=== PATIENT | female | born 1980 | race Caucasian/White ===

== ENCOUNTER 2017-07-22 15:35 | Inpatient (IN) | payer OTHER ==
[~2017-07-22] VITALS: Ht 172.7 cm; Wt 104.3 kg
[2017-07-22 17:49] LABS: ABSOLUTE BASOPHIL COUNT 0.1 /CUMM (0.0-0.2); ABSOLUTE EOSINOPHIL COUNT 0 /CUMM (0.0-0.7); ABSOLUTE GRANULOCYTE CT 9.8 /CUMM (1.4-6.5); ABSOLUTE LYMPH COUNT 1.7 /CUMM (1.2-3.4); ABSOLUTE MONOCYTE COUNT 0.4 /CUMM (0.10-0.60); BASOPHIL % 0.5 % (0.0-2.0); EOSINOPHIL % 0.1 % (0-5); GRANULOCYTE % 81.9 % (42.2-75.2); HEMATOCRIT 35.6 % (37-47); MEAN CORPUSCULAR HGB 31.7 PG (27.0-31.0); MEAN CORPUSCULAR HGB CONC 33.7 G/DL (33.0-37.0); MEAN CORPUSCULAR VOLUME 94.1 FL (81.0-99.0); MEAN PLATELET VOLUME 9.4 FL (7.4-10.4); PLATELET COUNT 243 /CUMM (130-400); RBC DISTRIBUTION WIDTH 13.8 % (11.5-14.5); RED BLOOD CELL CT 3.78 /CUMM (4.20-5.40)
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
--- NOTE | 2017-07-22 18:48 | CT SCAN REPORT ---
EXAMINATION: CTA OF THE HEAD AND NECK CLINICAL INFORMATION: Left-sided visual defect. Stroke. COMPARISON: Head CT from earlier in the evening on 07/22/2017. TECHNIQUE: Test bolus sequences followed by intravenous administration 95 mL of Optiray 350. Helical imaging was performed in the axial plane from the mediastinum to the skull vertex. Delayed postcontrast imaging of the head was also performed. The data was processed at the technologist development's workstation for generation of MIP sequences. Three-dimensional volume rendered reformatted images were also generated at an offline 3-D workstation. DLP: 1112.95 mGy-cm. FINDINGS: CT head: There is focal loss of olea-white matter attenuation in the anteroinferior portion of the right occipital lobe. There is no evidence of acute intracranial hemorrhage. No abnormal mass effect or midline shift is seen. No extra-axial fluid collections are identified. There is no abnormal enhancement. The ventricles are normal in size. Small peripheral areas of low-density change in the cerebellar hemispheres may reflect age-indeterminate infarcts. The osseous structures and soft tissues are normal. The mastoid air cells and visualized portions of the paranasal sinuses are well aerated. CTA neck: The imaged aortic arch and origins of the great vessels are normal. The common carotid arteries are widely patent. The carotid bifurcations are normal. The cervical internal carotid arteries are normal. The vertebral arteries opacify normally and are of normal caliber. The left vertebral artery is developmentally nondominant and hypoplastic. The soft tissues of the neck are unremarkable. Mild lower cervical spondylosis noted with endplate spurring. The imaged portions of the lungs are clear. CTA head: The intradural vertebral arteries and basilar artery are normal. There is occlusion of the right posterior cerebral artery at the distal P3 segment. The left LONGWALL SHEARER OPERATOR is patent. The internal carotid arteries are of normal caliber. The ULISES and MCA vascular complexes bilaterally are normal. The venous sinuses opacify normally. IMPRESSION: Focal right occipital lobe infarct without hemorrhagic conversion or mass effect. Occlusion of the right LONGWALL SHEARER OPERATOR at the distal P3 segment. Small peripheral areas of low-density change in the cerebellar hemispheres are nonspecific and may reflect age indeterminate infarcts. This critical result was discussed with Dr. Baig at 6:40 PM on 07/22/2017 and it was ascertained that the content and urgency of the report was understood at the time of direct communication.
[2017-07-22] MEDS ORDERED: ORTHO TRI-CYCL1 EAC1 PO (19:32)
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
--- NOTE | 2017-07-22 22:33 | Admission Certification ---
Admission Certification Certification Statement - As attending physician, I certify that at the time of - admission, based on clinical presentation, severity of - symptoms, need for further diagnostic testing and - therapeutic interventions, and risk of adverse outcomes - without in-hospital treatment, in my clinical assessment, - this patient requires an acute hospital stay for a minimum - of two nights or longer. I have also considered psychsocial - factors such as support system, advanced age, financial - issues, cognitive issues, and failed out-patient treatments, - past re-admission history, safety of patient, and lack of - compliance as applicable. 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
[2017-07-22 23:06] VITALS: BP 138/100
[2017-07-23 06:30] VITALS: BP 132/100
--- NOTE | 2017-07-23 07:14 | PN- Housestaff ---
Subjective Follow-up For: Stroke Tele-Events Since Last Visit: Sinus tachycardia with couplets Heart rate 11-127 3 beat run of V. tach Subjective: Patient continues to have bitemporal visual field deficit, denies any weakness or numbness in any part of the body, confusion/altered mental status, visual loss, slurring of speech or any facial droop. Also reports mild headache when she woke up this morning which has resolved now. Review of Systems Constitutional: Reports: no symptoms. EENTM: Reports: visual changes. Cardiovascular: Reports: no symptoms. Respiratory: Reports: no symptoms. Gastrointestinal: Reports: no symptoms. Genitourinary: Reports: no symptoms. Musculoskeletal: Reports: no symptoms. Skin: Reports: no symptoms. Neurological/Psychological: Reports: no symptoms. Hematologic/Endocrine: Reports: no symptoms. Immunologic/Allergic: Reports: no symptoms. Objective Last 24 Hrs of Vital Signs/I&O Vital Signs Date Time Temp Pulse Resp B/P B/P Pulse O2 O2 Flow FiO2 Mean Ox Delivery Rate 07/23 0630 98.1 105 18 132/100 98 07/22 2306 98.0 119 16 138/100 100 Room Air 07/22 2233 99.2 113 16 143/97 100 Room Air 07/22 1916 99.1 114 22 148/86 98 Room Air 07/22 1606 97.7 117 15 136/93 96 Room Air Room Air Intake & Output 07/23 1600 07/23 0800 07/23 0000 Intake Total 400 260 240 Output Total 750 Balance -350 260 240 Intake, IV 10 Intake, Oral 400 250 240 Output, Urine 750 Patient 230 lb Weight Weight Reported by Patient Measurement Method Physical Exam General Appearance: Alert, Oriented X3, Cooperative, No Acute Distress Skin: No Rashes, No Breakdown HEENT: Atraumatic, PERRLA, EOMI, Mucous Membr. moist/pink, dilated pupils Cardiovascular: Regular Rate, Normal S1, Normal S2 Lungs: Clear to Auscultation, Normal Air Movement Abdomen: Normal Bowel Sounds, Soft, No Tenderness Extremities: No Clubbing, No Cyanosis, No Edema, Normal Pulses Current Medications: Current Medications Sig/Manoj Start time Last Medication Dose Route Stop Time Status Admin Aspirin 81 MG DAILY 07/23 1000 AC 07/23 PO 0810 Aspirin 0 .STK-MED ONE 07/22 1952 DC PO Aspirin 325 MG ONCE ONE 07/22 1929 DC 07/22 PO 07/22 193 1950 Atorvastatin Calcium 40 MG 1700 07/23 1700 DC PO Atorvastatin Calcium 80 MG 1700 07/23 1700 AC PO Atorvastatin Calcium 80 MG ONCE ONE 07/22 1930 DC 07/22 PO 07/22 193 1950 Heparin Sodium 5,000 UNIT Q8 07/23 0600 AC 07/23 (Porcine) SC 1317 Influenza Virus 0.5 ML ONCE ONE 07/22 2330 DC 07/22 Vaccine IM 07/22 2330 2328 Melatonin 5 MG AT BEDTIME 07/23 2200 DC PO Melatonin 5 MG AT BEDTIME 07/22 2345 AC 07/22 PO 2350 Ondansetron HCl 4 MG Q6P PRN 07/22 2145 IV Patient Medication 1 ED ONE ONE 07/23 1430 [place] Teaching [facility] 07/23 1431 Last 24 Hrs of Lab/Avn Results Last 24 Hrs of Labs/Mics: Laboratory Tests 07/23/17 0636: Homocysteine Pending 07/23/17 0636: Anion Gap 9, Estimated GFR > 60, BUN/Creatinine Ratio 14.4, Triglycerides 109, Cholesterol 95, LDL Cholesterol, Calc 43 L, HDL Cholesterol 31 L, Cholesterol/ HDL Ratio 3, CBC w Diff NO MAN DIFF REQ, RBC 3.59 L, MCV 93.6, MCH 31.4 H, MCHC 33.6, RDW 14.0, MPV 9.5, Gran % 62.0, Lymphocytes % 30.3, Monocytes % 5.5, Eosinophils % 1.6, Basophils % 0.6, Absolute Granulocytes 5.6, Absolute Lymphocytes 2.7, Absolute Monocytes 0.5, Absolute Eosinophils 0.1, Absolute Basophils 0.1, Anti-Cardiolipin IgG Ab Pending, Anti-Cardiolipin IgA Ab Pending, Anti-Cardiolipin IgM Ab Pending, Cardiolipin Ab Comment Pending 07/22/17 1738: Anion Gap 11, Estimated GFR > 60, BUN/Creatinine Ratio 14.4, Phosphorus 3.6, Magnesium 1.6, Triglycerides 102, Cholesterol 117, LDL Cholesterol, Calc 56 L, HDL Cholesterol 41, Cholesterol/HDL Ratio 3, Total Beta HCG NEGATIVE, CBC w Diff NO MAN DIFF REQ, RBC 3.78 L, MCV 94.1, MCH 31.7 H, MCHC 33.7, RDW 13.8, MPV 9.4, Gran % 81.9 H, Lymphocytes % 14.1 L, Monocytes % 3.4, Eosinophils % 0.1, Basophils % 0.5, Absolute Granulocytes 9.8 H, Absolute Lymphocytes 1.7, Absolute Monocytes 0.4, Absolute Eosinophils 0, Absolute Basophils 0.1 Assessment/Plan Assessment: 37-year-old female with no past medical history on OCP presented to the ER with c/o left sided visual deficit and paresthesia in left side of her body. A/P; 1. Stroke; Right occipital lobe infarct on CTA. Patient continues to have bitemporal visual field deficits. - Continue aspirin and statin - Echocardiogram pending. Patient will need a DMITRY to rule out any cardio embolic source. - MRI was canceled as the lesion is already seen on the CAT scan and getting an MRI which shows the management. - Neurology consult; awaiting recommendations - Antiphospholipid antibody and homocystine level pending. - Oral contraceptive pill discontinued. Discussed with the patient, she can no longer take contraceptive pills, will need an alternate method of contraception. - Patient remains tachycardic and had a blood pressure of 130/100 this morning. No previous history of hypertension or tachycardia/arrhythmias. Could be anxiety or white coat hypertension. We'll continue to monitor. DVT prophylaxis; subcutaneous Lovenox Patient is full code Problem List: 1. Stroke Pain Ratin Pain Location: None Pain Goal: Remain pain free Pain Plan: Pain pathway Tomorrow's Labs & Rationales: None
--- NOTE | 2017-07-23 07:30 | ULTRASOUND REPORT ---
EXAMINATION: DUPLEX BILATERAL CAROTID ULTRASOUND CLINICAL INFORMATION: Woke with left upper extremity pain, paresthesias. Some loss of vision within the left eye. COMPARISON: None. TECHNIQUE: Duplex bilateral carotid US was performed using real-time ultrasound and Doppler techniques (integrating B-mode 2D vascular images, Doppler spectral analysis and color flow Doppler imaging). These techniques were utilized to interrogate the extracranial carotid and vertebral arteries bilaterally. The degree of stenosis is based off criteria similar to NASCET. FINDINGS: No plaque is seen at the carotid bifurcations or within the internal carotid arteries. All velocities are within normal limits. ADDITIONAL FINDINGS: The vertebral arteries show antegrade flow. The external carotid arteries appear normal. IMPRESSION: No evidence of a hemodynamically significant stenosis involving the internal carotid arteries.
[2017-07-23 08:21] LABS: ABSOLUTE BASOPHIL COUNT 0.1 /CUMM (0.0-0.2); ABSOLUTE EOSINOPHIL COUNT 0.1 /CUMM (0.0-0.7); ABSOLUTE GRANULOCYTE CT 5.6 /CUMM (1.4-6.5); ABSOLUTE LYMPH COUNT 2.7 /CUMM (1.2-3.4); ABSOLUTE MONOCYTE COUNT 0.5 /CUMM (0.10-0.60); BASOPHIL % 0.6 % (0.0-2.0); EOSINOPHIL % 1.6 % (0-5); HEMATOCRIT 33.5 % (37-47); MEAN CORPUSCULAR HGB 31.4 PG (27.0-31.0); MEAN CORPUSCULAR HGB CONC 33.6 G/DL (33.0-37.0); MEAN CORPUSCULAR VOLUME 93.6 FL (81.0-99.0); MEAN PLATELET VOLUME 9.5 FL (7.4-10.4); PLATELET COUNT 195 /CUMM (130-400); RED BLOOD CELL CT 3.59 /CUMM (4.20-5.40); WHITE BLOOD CELL COUNT 9.1 /CUMM (4.8-10.8)
--- NOTE | 2017-07-23 08:43 | CT SCAN REPORT ---
EXAMINATION: CT HEAD WITHOUT CONTRAST CLINICAL INFORMATION: Loss of peripheral vision on left side. COMPARISON: None TECHNIQUE: Contiguous axial imaging was performed from the skull base to vertex without intravenous administration of contrast. The study is somewhat limited due to patient motion. DLP: 620 mGy-cm FINDINGS: There is no evidence of acute intracranial hemorrhage or territorial infarction. No abnormal mass effect or midline shift is seen. Aquino to white matter differentiation is well preserved. No extra-axial fluid collections are identified. The ventricles are normal in size. There are some peripheral posterior areas of low-density change and cerebellum which may be due to small infarcts or cerebellar fissures en face. The osseous structures and soft tissues are normal. The mastoid air cells and visualized portions of the paranasal sinuses are well aerated. IMPRESSION: No acute intracranial hemorrhage or territorial infarction. Somewhat limited study with motion artifacts. Questionable patchy areas of low density in the cerebellum which may be due to small infarcts or may be artifactually due to cerebellar fissures. If indicated, suggest further evaluation with MRI.
--- NOTE | 2017-07-23 11:34 | PN- Att Addend ---
Attending Addendum Attending Brief Note Patient seen and examined. Plan of care discussed with the medical team and the patient. Available lab work and radiology test reports were reviewed. Patient reports a slight occipital headache and the peripheral vision deficits. Exam: General: Patient awake alert oriented without any distress CVS: S1 plus S2 without any murmur or gallops Chest: Few scattered crepitation without any wheeze. There is no respiratory distress. 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: Awake alert oriented without any focal neuro deficit and follows commands appropriately; she subjectively reports a peripheral vision deficit bilaterally; Extremities: No edema; no clubbing or cyanosis noted Assessment plan Occipital stroke with the posterior cerebral artery thrombosis versus embolic phenomena - Obtain echocardiogram with possible closure plan for DMITRY to rule out cardiac embolic disease - Neurology consult - Patient was informed that she can no longer continues hormonal contraceptives - Continue DVT prophylaxis Continue aspirin and statin Out of bed and ambulate with assist No need for MRI since it would not change over and diagnosis has been confirmed with the CT scan - Follow-up for antiphospholipid antibodies and homocysteine level Laboratory Tests 07/23/17 0636: Homocysteine Pending 07/23/17 0636: Anion Gap 9, Estimated GFR > 60, BUN/Creatinine Ratio 14.4, Triglycerides 109, Cholesterol 95, LDL Cholesterol, Calc 43 L, HDL Cholesterol 31 L, Cholesterol/ HDL Ratio 3, CBC w Diff NO MAN DIFF REQ, RBC 3.59 L, MCV 93.6, MCH 31.4 H, MCHC 33.6, RDW 14.0, MPV 9.5, Gran % 62.0, Lymphocytes % 30.3, Monocytes % 5.5, Eosinophils % 1.6, Basophils % 0.6, Absolute Granulocytes 5.6, Absolute Lymphocytes 2.7, Absolute Monocytes 0.5, Absolute Eosinophils 0.1, Absolute Basophils 0.1, Anti-Cardiolipin IgG Ab Pending, Anti-Cardiolipin IgA Ab Pending, Anti-Cardiolipin IgM Ab Pending, Cardiolipin Ab Comment Pending 07/22/17 6978: Anion Gap 11, Estimated GFR > 60, BUN/Creatinine Ratio 14.4, Phosphorus 3.6, Magnesium 1.6, Triglycerides 102, Cholesterol 117, LDL Cholesterol, Calc 56 L, HDL Cholesterol 41, Cholesterol/HDL Ratio 3, Total Beta HCG NEGATIVE, CBC w Diff NO MAN DIFF REQ, RBC 3.78 L, MCV 94.1, MCH 31.7 H, MCHC 33.7, RDW 13.8, MPV 9.4, Gran % 81.9 H, Lymphocytes % 14.1 L, Monocytes % 3.4, Eosinophils % 0.1, Basophils % 0.5, Absolute Granulocytes 9.8 H, Absolute Lymphocytes 1.7, Absolute Monocytes 0.4, Absolute Eosinophils 0, Absolute Basophils 0.1 Vital Signs Date Time Temp Pulse Resp B/P B/P Pulse O2 O2 Flow FiO2 Mean Ox Delivery Rate 07/23 0630 98.1 105 18 132/100 98 07/22 2306 98.0 119 16 138/100 100 Room Air 07/22 2233 99.2 113 16 143/97 100 Room Air 07/22 1916 99.1 114 22 148/86 98 Room Air 07/22 1606 97.7 117 15 136/93 96 Room Air Room Air Intake & Output 07/23 1600 07/23 0800 07/23 0000 Intake Total 260 240 Output Total Balance 260 240 Intake, IV 10 Intake, Oral 250 240 Patient 230 lb Weight Weight Reported by Patient Measurement Method
--- NOTE | 2017-07-23 14:49 | Cons- Neurology ---
General Information and HPI Consulting Request Date of Consult: 07/23/17 Requested By: Iain LOCKETT,Lizeth Source of Information: patient Exam Limitations: no limitations History of Present Illness: 37-year-old female presented yesterday to Hospital emergency room. She recalls that earlier that in the assembly member she developed abdominal pain and had a number of episodes of vomiting There was no fever Her drove by car to her physician's office later that morning In route she noted a sense of tingling which began in the face and then migrated to the arm and leg Shortly afterward she noted that her vision was affected and she was unable to see in the left visual field There was no headache and no focal weakness Was no history of imbalance or gait difficulty After about 20 minutes the paresthesia in the left upper and lower extremity resolved The visual difficulty has remained unchanged She does not note any difficulty with reading There has been no diplopia She has never had any similar symptoms previously Allergies/Medications Allergies: Coded Allergies: No Known Allergies (07/22/17) Home Med List: Norgestimate-Ethinyl Estradiol (Ortho Tri-Cyclen Lo Tablet) [id number] LO TABLET 1 TAB PO DAILY CONTROL (Reported) Current Medications: Current Medications Sig/Manoj Start time Last Medication Dose Route Stop Time Status Admin Aspirin 81 MG DAILY 07/23 1000 AC 07/23 PO 0810 Aspirin 0 .STK-MED ONE 07/22 1952 DC PO Aspirin 325 MG ONCE ONE 07/22 1930 DC 07/22 PO 07/22 1930 1950 Atorvastatin Calcium 40 MG 1700 07/23 1700 DC PO Atorvastatin Calcium 80 MG 1700 07/23 1700 AC PO Atorvastatin Calcium 80 MG ONCE ONE 07/22 1930 DC 07/22 PO 07/22 193 1950 Heparin Sodium 5,000 UNIT Q8 07/23 0600 AC 07/23 (Porcine) SC 1317 Influenza Virus 0.5 ML ONCE ONE 07/220 DC 07/22 Vaccine IM 07/22 2330 2328 Melatonin 5 MG AT BEDTIME 07/23 2200 DC PO Melatonin 5 MG AT BEDTIME 07/22 2345 AC 07/22 PO 2350 Ondansetron HCl 4 MG Q6P PRN 07/22 2145 AC IV Patient Medication 1 ED ONE ONE 07/23 1430 DC Teaching ED 07/23 1431 Review of Systems Review of Systems: No headache, no weight change, no head trauma No difficulty speech or swallowing No chest pains or breathing difficulties or abdominal pain No falls No rashes or fevers No incontinence Past History Travel History Traveled to [place] past 21 day No Medical History Blood Transfusion Hx: No Neurological: NONE EENT: NONE Cardiovascular: NONE Respiratory: NONE Gastrointestinal: NONE Hepatic: NONE Renal: NONE Musculoskeletal: NONE Psychiatric: NONE Endocrine: NONE Blood Disorders: NONE Cancer(s): NONE STONEHAND/Reproductive: NONE Surgical History Surgical History: Family History Relations & Conditions If Any: Relation not specified for: *No pertinent family history Psychosocial History Where Do You Live? Home Who Do You Live With? spouse Services at Home: None Primary Language: Wallisian Smoking Status: Never Smoked ETOH Use: occasional use Illicit Drug Use: denies illicit drug use Functional Ability ADLs Independent: dressing, eating, toileting, bathing. Ambulation: independent IADLs Independent: shopping, housework, finances, food prep, telephone, transportation , medication admin. Exam & Diagnostic Data Vital Signs and I&O Vital Signs Date Time Temp Pulse Resp B/P B/P Pulse O2 O2 Flow FiO2 Mean Ox Delivery Rate 07/23 0630 98.1 105 18 132/100 98 07/22 2306 98.0 119 16 138/100 100 Room Air 07/22 2233 99.2 113 16 143/97 100 Room Air 07/22 1916 99.1 114 22 148/86 98 Room Air 07/22 1606 97.7 117 15 136/93 96 Room Air Room Air Intake & Output 07/23 1600 07/23 0800 07/23 0000 Intake Total 400 260 240 Output Total 750 Balance -350 260 240 Intake, IV 10 Intake, Oral 400 250 240 Output, Urine 750 Patient 230 lb Weight Weight Reported by Patient Measurement Method Physical Exam: Alert and oriented Language functions fund of knowledge attention span recall intact Heart sounds normal, no carotid bruit, distal pulses intact Extraocular movements full, pupils equal and reactive, fundi benign, left visual field loss, no facial weakness or facial sensory loss, palate tongue and shoulders intact Normal tone and strength upper and lower extremities No sensory loss to all modalities upper and lower extremities Deep tendon reflexes hypoactive throughout Plantar response flexor Coordinative functions and gait intact Last 48 Hours of Lab Results: Laboratory Tests 07/23 07/23 0636 0636 Chemistry Sodium (137 - 145 mmol/L) 138 Potassium (3.5 - 5.1 mmol/L) 4.1 Chloride (98 - 107 mmol/L) 104 Carbon Dioxide (22 - 30 mmol/L) 24 Anion Gap (5 - 16) 9 BUN (7 - 17 mg/dL) 13 Creatinine (0.5 - 1.0 mg/dL) 0.9 Estimated GFR (>60 ml/min) > 60 BUN/Creatinine Ratio (7 - 25 %) 14.4 Triglycerides (<150 mg/dL) 109 Cholesterol (<200 MG/DL) 95 LDL Cholesterol, Calc (65 - 129 mg/dL) 43 L HDL Cholesterol (40 - 60 mg/dL) 31 L Cholesterol/HDL Ratio (0.00 - 4.23 %) 3 Homocysteine Pending Hematology CBC w Diff NO MAN DIFF REQ WBC (4.8 - 10.8 /CUMM) 9.1 RBC (4.20 - 5.40 /CUMM) 3.59 L Hgb (12.0 - 16.0 G/DL) 11.3 L Hct (37 - 47 %) 33.5 L MCV (81.0 - 99.0 FL) 93.6 MCH (27.0 - 31.0 PG) 31.4 H MCHC (33.0 - 37.0 G/DL) 33.6 RDW (11.5 - 14.5 %) 14.0 Plt Count (130 - 400 /CUMM) 195 MPV (7.4 - 10.4 FL) 9.5 Gran % (42.2 - 75.2 %) 62.0 Lymphocytes % (20.5 - 51.1 %) 30.3 Monocytes % (1.7 - 9.3 %) 5.5 Eosinophils % (0 - 5 %) 1.6 Basophils % (0.0 - 2.0 %) 0.6 Absolute Granulocytes (1.4 - 6.5 /CUMM) 5.6 Absolute Lymphocytes (1.2 - 3.4 /CUMM) 2.7 Absolute Monocytes (0.10 - 0.60 /CUMM) 0.5 Absolute Eosinophils (0.0 - 0.7 /CUMM) 0.1 Absolute Basophils (0.0 - 0.2 /CUMM) 0.1 Immunology Anti-Cardiolipin IgG Ab Pending Anti-Cardiolipin IgA Ab Pending Anti-Cardiolipin IgM Ab Pending Cardiolipin Ab Comment Pending 07/22 1737 Chemistry Sodium (137 - 145 mmol/L) 138 Potassium (3.5 - 5.1 mmol/L) 5.0 Chloride (98 - 107 mmol/L) 102 Carbon Dioxide (22 - 30 mmol/L) 25 Anion Gap (5 - 16) 11 BUN (7 - 17 mg/dL) 13 Creatinine (0.5 - 1.0 mg/dL) 0.9 Estimated GFR (>60 ml/min) > 60 BUN/Creatinine Ratio (7 - 25 %) 14.4 Phosphorus (2.5 - 4.5 mg/dL) 3.6 Magnesium (1.6 - 2.3 mg/dL) 1.6 Triglycerides (<150 mg/dL) 102 Cholesterol (<200 MG/DL) 117 LDL Cholesterol, Calc (65 - 129 mg/dL) 56 L HDL Cholesterol (40 - 60 mg/dL) 41 Cholesterol/HDL Ratio (0.00 - 4.23 %) 3 Total Beta HCG (NEGATIVE) NEGATIVE Hematology CBC w Diff NO MAN DIFF REQ WBC (4.8 - 10.8 /CUMM) 12.0 H RBC (4.20 - 5.40 /CUMM) 3.78 L Hgb (12.0 - 16.0 G/DL) 12.0 Hct (37 - 47 %) 35.6 L MCV (81.0 - 99.0 FL) 94.1 MCH (27.0 - 31.0 PG) 31.7 H MCHC (33.0 - 37.0 G/DL) 33.7 RDW (11.5 - 14.5 %) 13.8 Plt Count (130 - 400 /CUMM) 243 MPV (7.4 - 10.4 FL) 9.4 Gran % (42.2 - 75.2 %) 81.9 H Lymphocytes % (20.5 - 51.1 %) 14.1 L Monocytes % (1.7 - 9.3 %) 3.4 Eosinophils % (0 - 5 %) 0.1 Basophils % (0.0 - 2.0 %) 0.5 Absolute Granulocytes (1.4 - 6.5 /CUMM) 9.8 H Absolute Lymphocytes (1.2 - 3.4 /CUMM) 1.7 Absolute Monocytes (0.10 - 0.60 /CUMM) 0.4 Absolute Eosinophils (0.0 - 0.7 /CUMM) 0 Absolute Basophils (0.0 - 0.2 /CUMM) 0.1 Imaging/Other Studies: SERVICE DATE: 07/22/17 EXAM TYPE: CAT - CT HEAD ANGIOGRAM; CT NECK ANGIOGRAM EXAMINATION: CTA OF THE HEAD AND NECK CLINICAL INFORMATION: Left-sided visual defect. Stroke. COMPARISON: Head CT from earlier in the evening on 07/22/2017. TECHNIQUE: Test bolus sequences followed by intravenous administration 95 mL of Optiray 350. Helical imaging was performed in the axial plane from the mediastinum to the skull vertex. Delayed postcontrast imaging of the head was also performed. The data was processed at the photonics engineering technologist's workstation for generation of MIP sequences. Three-dimensional volume rendered reformatted images were also generated at an offline 3-D workstation. DLP: 1112.95 mGy-cm. FINDINGS: CT head: There is focal loss of olea-white matter attenuation in the anteroinferior portion of the right occipital lobe. There is no evidence of acute intracranial hemorrhage. No abnormal mass effect or midline shift is seen. No extra-axial fluid collections are identified. There is no abnormal enhancement. The ventricles are normal in size. Small peripheral areas of low-density change in the cerebellar hemispheres may reflect age-indeterminate infarcts. The osseous structures and soft tissues are normal. The mastoid air cells and visualized portions of the paranasal sinuses are well aerated. CTA neck: The imaged aortic arch and origins of the great vessels are normal. The common carotid arteries are widely patent. The carotid bifurcations are normal. The cervical internal carotid arteries are normal. The vertebral arteries opacify normally and are of normal caliber. The left vertebral artery is developmentally nondominant and hypoplastic. The soft tissues of the neck are unremarkable. Mild lower cervical spondylosis noted with endplate spurring. The imaged portions of the lungs are clear. CTA head: The intradural vertebral arteries and basilar artery are normal. There is occlusion of the right posterior cerebral artery at the distal P3 segment. The left OTHER SPORTS COACH OR INSTRUCTOR is patent. The internal carotid arteries are of normal caliber. The ULISES and MCA vascular complexes bilaterally are normal. The venous sinuses opacify normally. IMPRESSION: Focal right occipital lobe infarct without hemorrhagic conversion or mass effect. Occlusion of the right OTHER SPORTS COACH OR INSTRUCTOR at the distal P3 segment. Small peripheral areas of low-density change in the cerebellar hemispheres are nonspecific and may reflect age indeterminate infarcts. Assessment/Plan Assessment: Cerebrovascular accident, right occipital Right occipital infarct secondary to posterior cerebral artery occlusion Etiology to be determined Patient told not to be driving for the near future until further visual tests available in the future Patient to stop use of control pills Follow up in neurology office Recommendations: Cardiac evaluation: echocardiogram and process; patient may require DMITRY and event monitor Initiated on aspirin and statin In future; systolic blood pressure to be under 130 Cardiolipin antibodies and phospholipid antibodies to be drawn Further coagulopathy profile to be done as an outpatient if no etiology found in hospital Consult Acknowledgment - Thank you for your consult request.
[2017-07-23 14:51] VITALS: BP 137/95
[2017-07-23 22:01] VITALS: BP 120/70
[2017-07-24 06:43] VITALS: BP 140/106
--- NOTE | 2017-07-24 08:05 | ECHOCARDIOGRAM REPORT ---
STEPHANIE LAM Age: 37 : 1980 Gender: F Exam Date: 07/23/2017 11:08 Exam Location: 1 [address] Ht (in): 68 Wt (lb): 230 BSA: 2.28 BP: 132 / 100 Ordering Physician: Nuria Key MD Referring Physician: Nuria Key MD Technologist: Jonas Smith RDCS Room Number: Indications: STROKE Rhythm: Sinus Technical Quality: good with Definity Contrast FINDINGS Left Ventricle Severely dilated left ventricle. Severely decreased systolic function. There is global severe hypokinesis to akinesis with sparing of the posterior wall. The ejection fraction is visually estimated at 20%. Right Ventricle The right ventricle is normal in size and function. Right Atrium The right atrium is normal in size. Left Atrium The left atrium is normal in size. The interatrial septum is intact. Mitral Valve The mitral valve is normal in structure and function. There is moderate mitral regurgitation. Aortic Valve Structurally normal aortic valve without significant sclerosis or stenosis. There is trace aortic regurgitation. Tricuspid Valve The tricuspid valve is normal in structure and function. There is moderate tricuspid regurgitation. Pulmonary artery systolic pressure is mildly elevated to 42mmHg. Pulmonic Valve Structurally normal pulmonic valve. There is no pulmonic regurgitation. Pericardium Normal pericardium without effusion. No pleural effusion. Great Vessels Normal aortic root dimension. The aortic arch and great vessels are well seen and are normal. CONCLUSIONS 1. Severely dilated left ventricle. 2. Severe global hypokinesis to akinesis with sparing of the posterior wall and EF of 20%. 3. Moderate mitral regurgitation. 4. Moderate tricuspid regurgitation. 5. Trace aortic insufficiency. 6. Mild pulmonary hypertension. Neel Sainz M.D. (Electronically Signed) Final Date: 24 July 2017 08:04 MEASUREMENTS (Male / Female) Normal Values 2D ECHO LV Diastolic Diameter PLAX 7.1 cm 4.2 - 5.9 / 3.9 - 5.3 cm LV Systolic Diameter PLAX 6.2 cm 2.1 - 4.0 cm LV Fractional Shortening PLAX 12.7 % 25 - 46 % LV Ejection Fraction 2D Teich 26.4 % IVS Diastolic Thickness 1.0 cm LVPW Diastolic Thickness 1.1 cm LV Relative Wall Thickness 0.3 RV Internal Dim ED PLAX 3.8 cm 1.9 - 3.8 cm LVOT Diameter 2.1 cm Aortic Root Diameter 2.8 cm LA Systolic Diameter LX 3.6 cm 3.0 - 4.0 / 2.7 - 3.8 cm LV Ejection Fraction MOD BP 10.5 % >= 55 % LV Diastolic Length 4C 8.6 cm 6.9 - 10.3 cm LV Diastolic Area 4C 37.1 cm LV Diastolic Volume MOD 4C 130.0 cm LV Ejection Fraction MOD 4C 16.2 % LV Stroke Volume MOD 4C 21.0 cm LV Systolic Length 4C 8.3 cm LV Systolic Area 4C 32.2 cm LV Systolic Volume MOD 4C 109.0 cm LV Ejection Fraction MOD 2C 1.3 % LV Diastolic Volume 4C AL 135.4 cm 85 - 139 / 69 - 109 cm LV Systolic Volume 4C AL 106.7 cm LV Ejection Fraction 4C AL 21.2 % LV Stroke Volume 4C AL 28.7 cm LV Ejection Fraction 2C AL 3.9 % LA Volume 72.0 cm 18 - 58 / 22 - 52 cm Ascending Aorta Diameter 3.8 cm DOPPLER AV Peak Velocity 150.0 cm/s AV Peak Gradient 9.0 mmHg AV Mean Velocity 95.1 cm/s AV Mean Gradient 5.0 mmHg AV Velocity Time Integral 23.4 cm LVOT Peak Velocity 48.9 cm/s LVOT Peak Gradient 1.0 mmHg LVOT Mean Velocity 32.3 cm/s LVOT Mean Gradient 0.0 mmHg LVOT Velocity Time Integral 7.2 cm LVOT Stroke Volume 25.0 cm AV Area Cont Eq vti 1.1 cm AV Area Cont Eq pk 1.1 cm MV Peak Velocity 103.0 cm/s MV Peak Gradient 4.2 mmHg MV Mean Velocity 58.4 cm/s MV Mean Gradient 2.0 mmHg Mitral E Point Velocity 30.1 cm/s Mitral A Point Velocity 84.4 cm/s Mitral E to A Ratio 0.4 MV PHT Velocity 102.0 cm/s MV Deceleration Dukes 275.0 cm/s MV Pressure Half Time 111.3 ms MV Area PHT 2.0 cm MR Peak Velocity 493.0 cm/s MR Peak Gradient 97.2 mmHg TR Peak Velocity 303.0 cm/s TR Peak Gradient 36.7 mmHg Right Atrial Pressure 10.0 mmHg Pulmonary Artery Systolic Pressu 46.7 mmHg Right Ventricular Systolic Press 46.7 mmHg PV Peak Velocity 55.1 cm/s PV Peak Gradient 1.2 mmHg PV Mean Velocity 41.0 cm/s PV Mean Gradient 1.0 mmHg PV Velocity Time Integral 9.2 cm
--- NOTE | 2017-07-24 08:15 | PN- Housestaff ---
Collin LOCKETT,[facility] 07/24/17 0815: Subjective Follow-up For: Stroke CMP ?? Global Hypokinesis with EF 10-15% on Echo Tele-Events Since Last Visit: Sinus tachycardia Heart rate 95-127. Overnight events noted. Subjective: Patient resting comfortably in bed, denies any headaches, numbness or weakness in any part of the body, slurred speech, lightheadedness/dizziness, chest pain, palpitations or shortness of breath. Says her vision is slightly getting better compared to yesterday. Review of Systems Constitutional: Reports: no symptoms. EENTM: Reports: visual changes. Cardiovascular: Reports: no symptoms. Respiratory: Reports: no symptoms. Gastrointestinal: Reports: no symptoms. Genitourinary: Reports: no symptoms. Musculoskeletal: Reports: no symptoms. Skin: Reports: no symptoms. Neurological/Psychological: Reports: no symptoms. Hematologic/Endocrine: Reports: no symptoms. Immunologic/Allergic: Reports: no symptoms. Objective Last 24 Hrs of Vital Signs/I&O Vital Signs Date Time Temp Pulse Resp B/P B/P Pulse O2 O2 Flow FiO2 Mean Ox Delivery Rate 07/24 1416 97.9 115 20 142/90 98 Room Air 07/24 0800 Room Air 07/24 0643 98.0 105 20 140/106 98 Room Air 07/23 2201 98.7 111 20 120/70 97 07/23 1600 Room Air Intake & Output 07/24 1600 07/24 0800 07/24 0000 Intake Total 720 120 560 Output Total Balance 720 120 560 Intake, IV 20 Intake, Oral 720 120 540 Physical Exam General Appearance: Alert, Oriented X3, Cooperative, No Acute Distress Skin: No Rashes, No Breakdown Cardiovascular: Regular Rate, Normal S1, Normal S2 Lungs: Clear to Auscultation, Normal Air Movement Abdomen: Normal Bowel Sounds, Soft, No Tenderness Neurological: Normal Gait, Normal Speech, Strength at 5/5 X4 Ext, Normal Tone, Sensation Intact, Cranial Nerves 3-12 NL Extremities: No Clubbing, No Cyanosis, No Edema, Normal Pulses Current Medications: Current Medications Sig/Manoj Start time Last Medication Dose Route Stop Time Status Admin Acetaminophen 650 MG ONCE ONE 07/23 1845 DC 07/23 PO 07/23 1846 1839 Aspirin 81 MG DAILY 07/23 1000 AC 07/24 PO 0813 Atorvastatin Calcium 80 MG 1700 07/23 1700 AC 07/23 PO 1635 Carvedilol 3.125 MG BID 07/24 1458 AC PO Heparin Sodium 5,000 UNIT Q8 07/23 0600 AC 07/24 (Porcine) SC 1426 Melatonin 5 MG AT BEDTIME 07/22 2345 AC 07/23 PO 2154 Ondansetron HCl 4 MG Q6P PRN 07/22 2145 AC IV Last 24 Hrs of Lab/Van Results Last 24 Hrs of Labs/Mics: Laboratory Tests 07/23/17 1640: Lupus Anticoagulant Pending, LA PTT Screen Pending, Dil Matt Viper Venom Pending, Ref Lab Test Result Pending 07/23/17 1615: Homocysteine Pending Assessment/Plan Assessment: 37-year-old female with no past medical history on OCP presented to the ER with c/o left sided visual deficit and paresthesia in left side of her body. A/P; 1. Stroke; Right occipital lobe infarct on CTA. Patient continues to have left -sided visual field deficits but improving. 2. CMP ?? - Global hypokinesis with ejection fraction of 20% on echocardiogram - Continue aspirin and statin - Echocardiogram findings discussed with the patient. Patient may need a cardiac MRI to rule out any left ventricular thrombus or cardiomyopathy. - Patient started on carvedilol 3.125 mg daily. - MRI of the head to rule out any other embolic events. - Neurology consult; appreciate recommendations - JESUSITA, dsDNA, Anti SSA/B, Anti-Jo1 ab, iron studies, BRANDI levels, Antiphospholipid antibody and homocystine level pending. DVT prophylaxis; subcutaneous Lovenox Patient is full code Problem List: 1. Stroke 2. Decreased cardiac ejection fraction Pain Ratin Pain Location: None Pain Goal: Remain pain free Pain Plan: Pain Pathway Tomorrow's Labs & Rationales: None Keyon LOCKETT,Amir 07/24/17 1259: Attending MD Review Statement Attending Statement Attending MD Statement: examined this patient, discuss w/resident/PA/DIFFUSER OPERATOR, agreed w/resident/PA/DIFFUSER OPERATOR, reviewed EMR data (avail), discussed with nursing Attending Assessment/Plan: Pt was seen and evaluated. Chart reviewed. Denies any complication. 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 Her vision has improved slowely. Denies CP or SOB. Echo findings d/w the patient. Appreciate Neuro eval. f/u cardiac eval. rest of the plan as per resident's note
--- NOTE | 2017-07-24 12:15 | PN- Neurology ---
Subjective Subjective: Doing better Objective Vital Signs and I&Os Vital Signs Date Time Temp Pulse Resp B/P B/P Pulse O2 O2 Flow FiO2 Mean Ox Delivery Rate 07/24 0800 Room Air 07/24 0643 98.0 105 20 140/106 98 Room Air 07/23 2201 98.7 111 20 120/70 97 07/23 1600 Room Air 07/23 1451 97.8 110 14 137/95 99 Room Air Intake & Output 07/24 1600 07/24 0800 07/24 0000 07/23 1600 07/23 0800 07/23 0000 Intake Total 120 560 400 260 240 Output Total 750 Balance 120 560 -350 260 240 Intake, IV 20 10 Intake, Oral 120 540 400 250 240 Output, Urine 750 Patient 104.326 kg Weight Weight Reported by Patient Measurement Method Physical Exam: Alert and oriented Language functions fund of knowledge attention span recall intact Heart sounds normal, no carotid bruit, distal pulses intact Extraocular movements full, pupils equal and reactive, fundi benign, left visual field loss, no facial weakness or facial sensory loss, palate tongue and shoulders intact Normal tone and strength upper and lower extremities No sensory loss to all modalities upper and lower extremities Deep tendon reflexes hypoactive throughout Plantar response flexor Coordinative functions and gait intact Current Medications: Current Medications Sig/Manoj Start time Last Medication Dose Route Stop Time Status Admin Acetaminophen 650 MG ONCE ONE 07/23 1845 DC 07/23 PO 07/23 1846 1839 Aspirin 81 MG DAILY 07/23 1000 AC 07/24 PO 0813 Atorvastatin Calcium 80 MG 1700 07/23 1700 AC 07/23 PO 1635 Heparin Sodium 5,000 UNIT Q8 07/23 0600 AC 07/24 (Porcine) SC 0553 Melatonin 5 MG AT BEDTIME 07/22 2345 AC 07/23 PO 2154 Ondansetron HCl 4 MG Q6P PRN 07/22 2145 IV Patient Medication 1 ED ONE ONE 07/23 1430 DC Teaching ED 07/23 1431 Results Last 24 Hours of Lab Results: Laboratory Tests 07/23 07/23 1640 1615 Chemistry Homocysteine Pending Coagulation Lupus Anticoagulant Pending LA PTT Screen Pending Dil Matt Viper Venom Pending Miscellaneous Ref Lab Test Result Pending Recent Imaging Studies: CTA neck to COW: Cerebrovascular accident, right occipital Right occipital infarct secondary to posterior cerebral artery occlusion CT Head: There is focal loss of olea-white matter attenuation in the anteroinferior portion of the right occipital lobe. 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 Echo showed EF 20% Obtain MRI of brain w/o BETHANY to look for microhemorrhage and extend of stroke. I would not be surprised if she has embolic stroke Considering low EF she will likely need anticoagulation If MRI does NOT show ICH and stroke is NOT large then start heparring gtts 5 days after stroke onset. PTT goal should be 50-70, avoid heparin bollus, heparin should be adjusted by 100-200 units per hour, check PTT q6hrs, start with heparin gtts at 800 units per hour Once theraputic for [address] head w/o contrast, if no ICH conversion the start PO anticoagulation Obtain JESUSITA, dsDNA, SSA/B, Charity-1, beta 2glycoprotein, cardiolipin Ab, Homocystein level, MTFHR gene mutation PT/OT eval Call with questions Plan: see above
--- NOTE | 2017-07-24 13:32 | Cons- Cardiology ---
General Information and HPI Consulting Request Date of Consult: 07/24/17 Requested By: Iain LOCKETT,Lizeth Reason for Consult: Stroke, cardiomyopathy Source of Information: patient Exam Limitations: no limitations History of Present Illness: The patient is a very nice 37-year-old female. Her follows with Max Russo MD and the patient plans to follow with him as well. I am covering for him today. The patient presented to the [facility] emergency room with complaints of numbness and weakness of her left side. She was apparently in her usual state of health. She had some symptoms of nausea and vomiting with abdominal pain. According to the patient other family members had symptoms of a GI virus over the last few weeks. She was scheduled to see her primary care physician, however, on the way to the visit, due to worsening numbness and tingling on the left side of her face arm and leg, along with visual issues on the left side, the patient was brought to the emergency room. The patient adamantly denies any history of cardiac symptoms. She denies any prior neurologic symptoms. Line the patient's head CT/CTA showed a right occipital infarct with focal occlusion of the P3 segment of the [employer]. There were also small peripheral areas of low density changes noted in the cerebellar hemispheres which were felt to be nonspecific but possibly reflecting age indeterminate infarcts as well. The patient's carotid ultrasound was reportedly normal. Her echocardiogram was noted to be significantly abnormal. Allergies/Medications Allergies: Coded Allergies: No Known Allergies (07/22/17) Home Med List: Norgestimate-Ethinyl Estradiol (Ortho Tri-Cyclen Lo Tablet) [id number] LO TABLET 1 TAB PO DAILY CONTROL (Reported) Current Medications: Current Medications Sig/Manoj Start time Last Medication Dose Route Stop Time Status Admin Acetaminophen 650 MG ONCE ONE 07/23 1845 DC 07/23 PO 07/23 1846 1839 Aspirin 81 MG DAILY 07/23 1000 AC 07/24 PO 0813 Atorvastatin Calcium 80 MG 1700 07/23 1700 AC 07/23 PO 1635 Heparin Sodium 5,000 UNIT Q8 07/23 0600 AC 07/24 (Porcine) SC 0553 Melatonin 5 MG AT BEDTIME 07/22 2345 AC 07/23 PO 2154 Ondansetron HCl 4 MG Q6P PRN 07/22 2145 AC IV Patient Medication 1 ED ONE ONE 07/23 1430 DC Teaching ED 07/23 1431 Past History Travel History Traveled to [place] past 21 day No Medical History Blood Transfusion Hx: No Neurological: NONE EENT: NONE Cardiovascular: NONE Respiratory: NONE Gastrointestinal: NONE Hepatic: NONE Renal: NONE Musculoskeletal: NONE Psychiatric: NONE Endocrine: NONE Blood Disorders: NONE Cancer(s): NONE GENETIC COUNSELLOR/Reproductive: NONE Surgical History Surgical History: Family History Relations & Conditions If Any: Relation not specified for: *No pertinent family history Psychosocial History Where Do You Live? Home Who Do You Live With? spouse Services at Home: None Primary Language: Nicaraguan Smoking Status: Never Smoked ETOH Use: occasional use Illicit Drug Use: denies illicit drug use Functional Ability ADLs Independent: dressing, eating, toileting, bathing. Ambulation: independent IADLs Independent: shopping, housework, finances, food prep, telephone, transportation , medication admin. Exam & Diagnostic Data Vital Signs and I&O Vital Signs Date Time Temp Pulse Resp B/P B/P Pulse O2 O2 Flow FiO2 Mean Ox Delivery Rate 07/24 08 Room Air 07/24 0643 98.0 105 20 140/106 98 Room Air 07/23 2201 98.7 111 20 120/70 97 07/23 1600 Room Air 07/23 1451 97.8 110 14 137/95 99 Room Air Intake & Output 07/24 1600 07/24 0800 07/24 0000 07/23 1600 07/23 0800 07/23 0000 Intake Total 120 560 400 260 240 Output Total 750 Balance 120 560 -350 260 240 Intake, IV 20 10 Intake, Oral 120 540 400 250 240 Output, Urine 750 Patient 230 lb Weight Weight Reported by Patient Measurement Method Physical Exam: General Appearance Alert, Oriented X3, Cooperative, No Acute Distress HEENT Atraumatic, PERRLA, EOMI Neck Supple, No JVD, No thryomegaly, +2 Carotid Pulse wo Bruit Cardiovascular Normal S1, Normal S2, No Murmurs, soft S4, 1 to 2/6 systolic murmur left upper sternal border Lungs Clear to Auscultation and percussion bilaterally with slight dullness at the left base Abdomen Soft, No Tenderness, No Hepatospenomegaly Neurological Normal Speech, Strength at 5/5 X4 Ext, Normal Tone, Sensation Intact, Cranial Nerves 3-12 NL, Reflexes 2+, bitemporal hemianopsia, motor and sensory intact. Extremities No Edema Labs/Van Results: Laboratory Tests 07/23 07/23 07/23 1640 [id number] Chemistry Sodium (137 - 145 mmol/L) 138 Potassium (3.5 - 5.1 mmol/L) 4.1 Chloride (98 - 107 mmol/L) 104 Carbon Dioxide (22 - 30 mmol/L) 24 Anion Gap (5 - 16) 9 BUN (7 - 17 mg/dL) 13 Creatinine (0.5 - 1.0 mg/dL) 0.9 Estimated GFR (>60 ml/min) > 60 BUN/Creatinine Ratio (7 - 25 %) 14.4 Triglycerides (<150 mg/dL) 109 Cholesterol (<200 MG/DL) 95 LDL Cholesterol, Calc (65 - 129 mg/dL) 43 L HDL Cholesterol (40 - 60 mg/dL) 31 L Cholesterol/HDL Ratio (0.00 - 4.23 %) 3 Homocysteine Pending Coagulation Lupus Anticoagulant Pending LA PTT Screen Pending Dil Matt Viper Venom Pending Hematology CBC w Diff NO MAN DIFF REQ WBC (4.8 - 10.8 /CUMM) 9.1 RBC (4.20 - 5.40 /CUMM) 3.59 L Hgb (12.0 - 16.0 G/DL) 11.3 L Hct (37 - 47 %) 33.5 L MCV (81.0 - 99.0 FL) 93.6 MCH (27.0 - 31.0 PG) 31.4 H MCHC (33.0 - 37.0 G/DL) 33.6 RDW (11.5 - 14.5 %) 14.0 Plt Count (130 - 400 /CUMM) 195 MPV (7.4 - 10.4 FL) 9.5 Gran % (42.2 - 75.2 %) 62.0 Lymphocytes % (20.5 - 51.1 %) 30.3 Monocytes % (1.7 - 9.3 %) 5.5 Eosinophils % (0 - 5 %) 1.6 Basophils % (0.0 - 2.0 %) 0.6 Absolute Granulocytes (1.4 - 6.5 /CUMM) 5.6 Absolute Lymphocytes (1.2 - 3.4 /CUMM) 2.7 Absolute Monocytes (0.10 - 0.60 /CUMM) 0.5 Absolute Eosinophils (0.0 - 0.7 /CUMM) 0.1 Absolute Basophils (0.0 - 0.2 /CUMM) 0.1 Immunology Anti-Cardiolipin IgG Ab Pending Anti-Cardiolipin IgA Ab Pending Anti-Cardiolipin IgM Ab Pending Cardiolipin Ab Comment Pending Miscellaneous Ref Lab Test Result Pending 07/22 1738 Chemistry Sodium (137 - 145 mmol/L) 138 Potassium (3.5 - 5.1 mmol/L) 5.0 Chloride (98 - 107 mmol/L) 102 Carbon Dioxide (22 - 30 mmol/L) 25 Anion Gap (5 - 16) 11 BUN (7 - 17 mg/dL) 13 Creatinine (0.5 - 1.0 mg/dL) 0.9 Estimated GFR (>60 ml/min) > 60 BUN/Creatinine Ratio (7 - 25 %) 14.4 Phosphorus (2.5 - 4.5 mg/dL) 3.6 Magnesium (1.6 - 2.3 mg/dL) 1.6 Triglycerides (<150 mg/dL) 102 Cholesterol (<200 MG/DL) 117 LDL Cholesterol, Calc (65 - 129 mg/dL) 56 L HDL Cholesterol (40 - 60 mg/dL) 41 Cholesterol/HDL Ratio (0.00 - 4.23 %) 3 Total Beta HCG (NEGATIVE) NEGATIVE Hematology CBC w Diff NO MAN DIFF REQ WBC (4.8 - 10.8 /CUMM) 12.0 H RBC (4.20 - 5.40 /CUMM) 3.78 L Hgb (12.0 - 16.0 G/DL) 12.0 Hct (37 - 47 %) 35.6 L MCV (81.0 - 99.0 FL) 94.1 MCH (27.0 - 31.0 PG) 31.7 H MCHC (33.0 - 37.0 G/DL) 33.7 RDW (11.5 - 14.5 %) 13.8 Plt Count (130 - 400 /CUMM) 243 MPV (7.4 - 10.4 FL) 9.4 Gran % (42.2 - 75.2 %) 81.9 H Lymphocytes % (20.5 - 51.1 %) 14.1 L Monocytes % (1.7 - 9.3 %) 3.4 Eosinophils % (0 - 5 %) 0.1 Basophils % (0.0 - 2.0 %) 0.5 Absolute Granulocytes (1.4 - 6.5 /CUMM) 9.8 H Absolute Lymphocytes (1.2 - 3.4 /CUMM) 1.7 Absolute Monocytes (0.10 - 0.60 /CUMM) 0.4 Absolute Eosinophils (0.0 - 0.7 /CUMM) 0 Absolute Basophils (0.0 - 0.2 /CUMM) 0.1 Diagnostic Data EKG Results Sinus tachycardia, poor R-wave progression, nonspecific ST-T changes. CXR Results Not performed Other Results CT head: There is focal loss of olea-white matter attenuation in the anteroinferior portion of the right occipital lobe. There is no evidence of acute intracranial hemorrhage. No abnormal mass effect or midline shift is seen. No extra-axial fluid collections are identified. There is no abnormal enhancement. The ventricles are normal in size. Small peripheral areas of low-density change in the cerebellar hemispheres may reflect age-indeterminate infarcts. The osseous structures and soft tissues are normal. The mastoid air cells and visualized portions of the paranasal sinuses are well aerated. CTA neck: The imaged aortic arch and origins of the great vessels are normal. The common carotid arteries are widely patent. The carotid bifurcations are normal. The cervical internal carotid arteries are normal. The vertebral arteries opacify normally and are of normal caliber. The left vertebral artery is developmentally nondominant and hypoplastic. The soft tissues of the neck are unremarkable. Mild lower cervical spondylosis noted with endplate spurring. The imaged portions of the lungs are clear. CTA head: The intradural vertebral arteries and basilar artery are normal. There is occlusion of the right posterior cerebral artery at the distal P3 segment. The left [employer] is patent. The internal carotid arteries are of normal caliber. The ULISES and MCA vascular complexes bilaterally are normal. The venous sinuses opacify normally. IMPRESSION: Focal right occipital lobe infarct without hemorrhagic conversion or mass effect. Occlusion of the right [employer] at the distal P3 segment. Small peripheral areas of low-density change in the cerebellar hemispheres are nonspecific and may reflect age indeterminate infarcts. Assessment/Plan Assessment/Plan Assessment: 1. Acute neurologic symptoms with right occipital stroke and possible bilateral cerebellar infarcts 2. Cardiomyopathy of unclear etiology-the patient denies any cardiac symptoms. Her echocardiogram shows minimal to mild aortic sclerosis. Mitral leaflet thickening is present with mild to moderate mitral insufficiency. The left ventricular chamber is moderately dilated with global hypokinesia and an ejection fraction of 15-20%. Left atrial enlargement is present with right heart chamber enlargement and dilatation of the inferior vena cava with moderate tricuspid insufficiency and a right ventricular systolic pressure 44 mmHg. There appears to be a left pleural effusion present. At the moment, the patient has no overt evidence of heart failure. However, in view of the patient's cardiomyopathy of unclear etiology and evidence of recent stroke, she clearly deserves significant further evaluation. Recommendations: -The situation was discussed in detail with the patient, and the medical care team -I would maintain the patient in the hospital on telemetry over the next 48 hours -Carvedilol 3.125 mg twice a day to be started -Consider MRI of the head to better assess for other evidence of embolic events -At the present time, the etiology of the patient's cardiac myopathy remains unclear. Ischemia seems unlikely. Other issues such as infiltrative disease, previously unidentified cardiomyopathy, post viral cardiomyopathy, remain to be elucidated. Consideration for hereditary cardiomyopathy also to be addressed. -At some point, I believe the patient would benefit from a cardiac MRI -Baseline blood work to include iron studies, mauro levels, etc. -Further decisions about other workup including cardiac MRI, genetic testing, etc. to be decided upon by Max Russo MD on Wednesday. Consult Acknowledgment - Thank you for your consult request.
[2017-07-24 14:16] VITALS: BP 142/90
[2017-07-24 17:44] VITALS: BP 144/100
[2017-07-24 21:21] VITALS: BP 132/86
--- NOTE | 2017-07-24 22:05 | RADIOLOGY REPORT ---
EXAMINATION: XR CHEST CLINICAL INFORMATION: Tachycardia COMPARISON: None TECHNIQUE: 2 views of the chest were obtained. FINDINGS: There is severe cardiac enlargement. The mediastinal contours appear within normal range. The lungs are clear without consolidation or effusion. No pneumothorax. Visualized osseous structures appear intact. IMPRESSION: Severe cardiomegaly.
[2017-07-25 06:43] VITALS: BP 124/86
--- NOTE | 2017-07-25 09:22 | PN- Housestaff ---
Anjel LOCKETT,Ishmael 07/25/17 0922: Subjective Follow-up For: Stroke Cardiomyopathy of unclear etiology: global hypokinesis with LVEF of 15- 20% Tele-Events Since Last Visit: Normal sinus rhythm heart rate 84-93, PVCs Subjective: Patient was seen and examined today. Patient states that she continues to have left-sided blurry vision. States that it has progressively gotten better. Patient initially came within with left-sided weakness and numbness which has resolved. Patient denies any headache, chest pain, palpitations, shortness of breath at rest or with exertion, lower extremity swelling, nausea/vomiting, diarrhea/constipation, dysuria/hematuria. No acute events overnight. Review of Systems Constitutional: Reports: see HPI. Objective Last 24 Hrs of Vital Signs/I&O Vital Signs Date Time Temp Pulse Resp B/P B/P Pulse O2 O2 Flow FiO2 Mean Ox Delivery Rate 07/25 1447 98.0 103 18 124/82 96 Room Air 07/25 0800 Room Air 07/25 0643 97.5 116 16 124/86 97 Room Air 07/25 0601 120 124/86 07/24 2142 100 132/86 Intake & Output 07/25 1600 07/25 0800 07/25 0000 Intake Total 1122 350 540 Output Total Balance 1122 350 540 Intake, Oral 1122 350 540 Physical Exam General Appearance: Alert, Oriented X3, Cooperative, No Acute Distress HEENT: Atraumatic, PERRLA, EOMI, Mucous Membr. moist/pink Cardiovascular: Regular Rate, Normal S1, Normal S2 Lungs: Clear to Auscultation, Normal Air Movement Abdomen: Normal Bowel Sounds, Soft, No Tenderness Neurological: Normal Speech, Strength at 5/5 X4 Ext, Normal Tone, Sensation Intact, Cranial Nerves 3-12 NL, Reflexes 2+ Extremities: No Clubbing, No Cyanosis, No Edema, Normal Pulses, No Tenderness/ Swelling Current Medications: Current Medications Sig/Manoj Start time Last Medication Dose Route Stop Time Status Admin Acetaminophen 650 MG ONCE ONE 07/24 2199 DC 07/24 PO 07/24 2200 221 Alprazolam 0.25 MG ONCE PRN 07/24 1800 DC PO 07/24 2300 Aspirin 81 MG DAILY 07/23 1000 AC 07/25 PO 0843 Atorvastatin Calcium 80 MG 1700 07/23 1700 AC 07/25 PO 1538 Carvedilol 3.125 MG BID 07/24 1458 AC 07/25 PO 0601 Heparin Sodium 5,000 UNIT Q8 07/23 0600 AC 07/25 (Porcine) SC 1445 Melatonin 5 MG AT BEDTIME 07/22 2345 AC 07/24 PO 2141 Ondansetron HCl 4 MG Q6P PRN 07/22 2145 AC IV Last 24 Hrs of Lab/Van Results Last 24 Hrs of Labs/Mics: Laboratory Tests 07/25/17 1545: TSH 0.974, Free T4 1.36 Assessment/Plan Assessment: 37-year-old female with no past medical history on OCP presented to the ER with c/o left sided visual deficit and paresthesia in left side of her body. A/P; 1. Stroke; Right occipital lobe infarct on CTA. Patient continues to have left -sided visual field deficits but improving. 2. Cardiomyopathy of unclear etiology: global hypokinesis with ejection fraction of 20% on echocardiogram - Continue aspirin and statin - Echocardiogram findings discussed with the patient. Patient may need a cardiac MRI to rule out any left ventricular thrombus or cardiomyopathy. - Patient increased to carvedilol 6.25 - MRI of the head to rule out any other embolic events tomorrow - Neurology consult; appreciate recommendations - JESUSITA, dsDNA, Anti SSA/B, Anti-Jo1 ab, iron studies, BRANDI levels, Antiphospholipid antibody and homocystine level and Iron panel pending. - Thyroid studies normal - DVT prophylaxis; subcutaneous Lovenox Patient is full code Problem List: 1. Stroke 2. Decreased cardiac ejection fraction Pain Ratin Pain Location: n/a Pain Goal: Remain pain free Pain Plan: n/a Tomorrow's Labs & Rationales: bloodwork from previous orders for evaluation of coagulopathies pending no repeat blood work at this time Keyon LOCKETT,Amir 07/25/17 1154: Attending MD Review Statement Attending Statement Attending MD Statement: examined this patient, discuss w/resident/PA/[employer], agreed w/resident/PA/[employer], reviewed EMR data (avail), discussed with nursing Attending Assessment/Plan: No overnight issues, vision remains stable. Denies CP or SOB. Reports no endocrine issues in past. Appreciate Cards and Neuro evaluations. Reports baseline anxiety, however, no Pysch history. Check TSH/FT4. f/u MRI results. Rest of the plan as per resident's note
--- NOTE | 2017-07-25 14:34 | PN- Cardiology ---
Subjective Subjective: The patient continues to well. She denies any significant symptoms. Neurologic issues slowly resolving. Objective Vital Signs and I&Os Vital Signs Date Time Temp Pulse Resp B/P B/P Pulse O2 O2 Flow FiO2 Mean Ox Delivery Rate 07/25 0800 Room Air 07/25 0643 97.5 116 16 124/86 97 Room Air 07/25 0601 120 124/86 07/24 2142 100 132/86 07/24 2121 97.6 58 18 132/86 97 07/24 1749 120 144/100 07/24 1744 120 144/100 Intake & Output 07/25 1600 07/25 0800 07/25 0000 07/24 1600 07/24 0800 07/24 0000 Intake Total 1122 350 540 720 120 560 Output Total Balance 1122 350 540 720 120 560 Intake, IV 20 Intake, Oral 1122 350 540 720 120 540 Physical Exam: General Appearance Alert, Oriented X3, Cooperative, No Acute Distress HEENT Atraumatic, PERRLA, EOMI Neck Supple, No JVD, No thryomegaly, +2 Carotid Pulse wo Bruit Cardiovascular Normal S1, Normal S2, No Murmurs, soft S4, 1 to 2/6 systolic murmur left upper sternal border Lungs Clear to Auscultation and percussion bilaterally with slight dullness at the left base Abdomen Soft, No Tenderness, No Hepatospenomegaly Neurological Normal Speech, Strength at 5/5 X4 Ext, Normal Tone, Sensation Intact, Cranial Nerves 3-12 NL, Reflexes 2+, bitemporal hemianopsia, motor and sensory intact. Extremities No Edema Current Medications: Current Medications Sig/Manoj Start time Last Medication Dose Route Stop Time Status Admin Acetaminophen 650 MG ONCE ONE 07/24 2199 DC 07/24 PO 07/24 2200 221 Alprazolam 0.25 MG ONCE PRN 07/24 1800 DC PO 07/24 2300 Aspirin 81 MG DAILY 07/23 1000 AC 07/25 PO 0843 Atorvastatin Calcium 80 MG 1700 07/23 1700 AC 07/24 PO 1749 Carvedilol 3.125 MG BID 07/24 1458 AC 07/25 PO 0601 Heparin Sodium 5,000 UNIT Q8 07/23 0600 AC 07/25 (Porcine) SC 0559 Melatonin 5 MG AT BEDTIME 07/22 2345 AC 07/24 PO 2141 Ondansetron HCl 4 MG Q6P PRN 07/22 2145 AC IV Results Last 48 Hrs of Labs/Mics: Laboratory Tests 07/24/17 1000: JESUSITA Titer Cancelled, Anti-Nuclear Antibody Cancelled 07/24/17 1000: Double Strand DNA Ab Cancelled 07/23/17 1640: Lupus Anticoagulant Pending, LA PTT Screen Pending, Dil Matt Viper Venom Pending, Ref Lab Test Result Pending 07/23/17 1615: Homocysteine Pending Assessment/Plan Assessment/Plan Assessment: 1. Acute neurologic symptoms with right occipital stroke and possible bilateral cerebellar infarcts 2. Cardiomyopathy of unclear etiology-the patient denies any cardiac symptoms. Her echocardiogram shows minimal to mild aortic sclerosis. Mitral leaflet thickening is present with mild to moderate mitral insufficiency. The left ventricular chamber is moderately dilated with global hypokinesia and an ejection fraction of 15-20%. Left atrial enlargement is present with right heart chamber enlargement and dilatation of the inferior vena cava with moderate tricuspid insufficiency and a right ventricular systolic pressure 44 mmHg. There appears to be a left pleural effusion present. At the moment, the patient has no overt evidence of heart failure. However, in view of the patient's cardiomyopathy of unclear etiology and evidence of recent stroke, she clearly deserves significant further evaluation. Recommendations: -The situation was discussed in detail with the patient, and the medical care team -I would maintain the patient in the hospital on telemetry over the next 48 hours -Carvedilol 6.25 mg twice a day -Consider MRI of the head to better assess for other evidence of embolic events -At the present time, the etiology of the patient's cardiac myopathy remains unclear. Ischemia seems unlikely. Other issues such as infiltrative disease, previously unidentified cardiomyopathy, post viral cardiomyopathy, remain to be elucidated. Consideration for hereditary cardiomyopathy also to be addressed. -At some point, I believe the patient would benefit from a cardiac MRI -Baseline blood work to include iron studies, mauro levels, etc. -Further decisions about other workup including cardiac MRI, genetic testing, etc. to be decided upon by Max Russo MD on Wednesday. -Final decisions about consideration for anticoagulation depending on results of MRI and further cardiac testing. Continue telemetry? Yes
[2017-07-25 14:47] VITALS: BP 124/82
[2017-07-25 23:05] VITALS: BP 118/72
[2017-07-26 06:54] VITALS: BP 120/76
--- NOTE | 2017-07-26 07:13 | PN- Housestaff ---
Collin LOCKETT,[facility] 07/26/17 0713: Subjective Follow-up For: CVA Cardiomyopathy of unclear etiology Tele-Events Since Last Visit: Sinus tachycardia Heart rate 85-121 Overnight events noted. Subjective: Patient sitting comfortably in bed, reports improvement in her vision. Denies any headache, facial droop, slurring of the speech, numbness/tingling or weakness in any part of the body. Review of Systems Constitutional: Reports: no symptoms. EENTM: Reports: visual changes. Cardiovascular: Reports: no symptoms. Respiratory: Reports: no symptoms. Gastrointestinal: Reports: no symptoms. Genitourinary: Reports: no symptoms. Musculoskeletal: Reports: no symptoms. Skin: Reports: no symptoms. Neurological/Psychological: Reports: no symptoms. Hematologic/Endocrine: Reports: no symptoms. Immunologic/Allergic: Reports: no symptoms. Objective Last 24 Hrs of Vital Signs/I&O Vital Signs Date Time Temp Pulse Resp B/P B/P Pulse O2 O2 Flow FiO2 Mean Ox Delivery Rate 07/26 0943 120/66 07/26 0654 97.4 93 12 120/76 98 Nasal 1.0L Cannula 07/25 2305 97.6 109 20 118/72 96 07/25 2157 102 118/74 07/25 1447 98.0 103 18 124/82 96 Room Air Intake & Output 07/26 1600 07/26 0800 07/26 0000 Intake Total 480 820 Output Total Balance 480 820 Intake, IV 10 Intake, Oral 480 810 Physical Exam General Appearance: Alert, Oriented X3, Cooperative, No Acute Distress Skin: No Rashes, No Breakdown Cardiovascular: Regular Rate, Normal S1, Normal S2 Lungs: Clear to Auscultation, Normal Air Movement Abdomen: Normal Bowel Sounds, Soft, No Tenderness Extremities: No Clubbing, No Cyanosis, No Edema Current Medications: Current Medications Sig/Manoj Start time Last Medication Dose Route Stop Time Status Admin Alprazolam 0.25 MG ONCE ONE 07/26 0745 DC 07/26 PO 07/26 0746 0747 Aspirin 81 MG DAILY 07/23 1000 AC 07/26 PO 0943 Atorvastatin Calcium 80 MG 1700 07/23 1700 AC 07/25 PO 1538 Carvedilol 6.25 MG BID 07/25 2200 AC 07/26 PO 0943 Carvedilol 3.125 MG BID 07/24 1458 DC 07/25 PO 0601 Ferrous Sulfate 325 MG DAILY 07/26 1000 AC 07/26 PO 0944 Heparin Sodium 5,000 UNIT Q8 07/23 0600 AC 07/26 (Porcine) SC 0609 Lisinopril 2.5 MG DAILY 07/26 1315 AC PO Melatonin 5 MG AT BEDTIME 07/22 2345 AC 07/25 PO 2151 Ondansetron HCl 4 MG Q6P PRN 07/22 2145 AC IV Last 24 Hrs of Lab/Van Results Last 24 Hrs of Labs/Mics: Laboratory Tests 07/26/17 0720: Ref Lab Test Result Pending 07/26/17 0720: JESUSITA Titer Pending, Anti-Nuclear Antibody Pending, Ref Lab Test Result Pending 07/26/17 0720: Angiotensin Convert Enz Pending, SS-A/Ro Antibody Pending, SS-B/La Antibody Pending, Double Strand DNA Ab Pending, Ref Lab Test Result Cancelled 07/25/17 1545: Iron 26 L, TIBC 423, Ferritin 34.2, C-Reactive Prot, Quant Pending, TSH 0.974, Free T4 1.36 Assessment/Plan Assessment: 37-year-old female with no past medical history on OCP presented to the ER with c/o left sided visual deficit and paresthesia in left side of her body. A/P; 1. Stroke; Right occipital lobe infarct on CTA. Patient continues to have left -sided visual field deficits but improving. 2. Cardiomyopathy of unclear etiology: global hypokinesis with ejection fraction of 20% on echocardiogram - Patient's visual symptoms are improving. - No overnight events noted on the environmental monitoring technician. - MRI of the head showed bilateral acute infarcts in posterior circulation with mild regional mass effect without shift of the normally midline structures. - Patient will be transferred to [place] today for further cardiac workup including a cardiac cath and MRI for her cardiomyopathy. - Continue aspirin, statin, and carvedilol. Low-dose lisinopril added today. - Iron studies and thyroid function tests normal. - JESUSITA, dsDNA, Anti SSA/B, Anti-Jo1 ab, iron studies, BRANDI levels, Antiphospholipid antibody and homocystine level pending. - OT evaluation; recommends Home self care. DVT prophylaxis; subcutaneous Lovenox Patient is full code Problem List: 1. Stroke 2. Decreased cardiac ejection fraction Pain Ratin Pain Location: None Pain Goal: Remain pain free Pain Plan: None Tomorrow's Labs & Rationales: None Shyanne LOCKETT,Libby 07/26/17 1043: Attending MD Review Statement Attending Statement Attending MD Statement: examined this patient, discuss w/resident/PA/BEAMSTER, agreed w/resident/PA/BEAMSTER, reviewed EMR data (avail), discussed with nursing, discussed with case mgmt, amended to note Attending Assessment/Plan: Patient seen and examined. Resting comfortably and not in any acute distress. Reports mild visual field defect on the left. Speech is intact. Denies any difficulty with ambulation. Denies any difficulty with meals. She has remained afebrile and hemodynamically stable during her stay. She has had sinus tachycardia which has improved with negative chronotropic agents here in the hospital. Other than sinus tachycardia she has had no other arrhythmias particularly atrial fibrillation while on telemetry monitoring. Her head CT and CT angiogram showed focal right occipital lobe infarct with occlusion of the right WET SILK HANGER. MRI today shows bilateral acute infarctions in the posterior circulation with the largest area involving the right posterior medial temporal/occipital lobe and left cerebellar hemisphere. There is mild regional mass effect without shift of midline structures. The bilateral nature of her stroke raises concern for cardioembolic disease, systemic vascular disease and coagulopathies. So far workup has been unrevealing. Problems: 1. Acute bilateral stroke 2. Cardiomyopathy with severely reduced ejection fraction; query chronicity 3. Sinus tachycardia Recommendations: -In the absence of confirmed atrial fibrillation, there is no clear evidence to support placing patient on full dose anticoagulation particularly long-term. She however will certainly benefit from a more prolonged cardiac monitoring. Please follow-up with cardiology service regarding setting this up. -Recommend checking ESR and CRP as a preliminary workup for possible vasculitis. -Continue current medical therapy with aspirin and statin therapy. Occupational Therapy consultation for discharge planning. -She will need further workup of her cardiomyopathy. Ischemic disease appears less likely given her age however this will need to be ruled out. Other considerations viral cardiomyopathy or an infiltrative process. Cardiology service is recommending cardiac MRI. This can be done electively. Follow-up with cardiology service regarding starting patient on BRANDI inhibitor versus ARB versus Neprilsyin inhibitor with ARB combination. -She is currently on Coreg for control of her sinus tachycardia.
--- NOTE | 2017-07-26 10:34 | MRI REPORT ---
EXAMINATION: MR BRAIN WITHOUT CONTRAST CLINICAL INFORMATION: Right occipital lobe infarct. COMPARISON: Head CTA from 07/22/2017 TECHNIQUE: MRI of the brain without contrast was obtained using routine sequences. FINDINGS: Corresponding to the area of hypoattenuation on CTA there is restricted diffusion involving the right occipital and posteromedial temporal lobes, COMPUTER ENGINEERING TECHNICIAN territory. There is no associated susceptibility artifact to suggest hemorrhagic transformation. There is a punctate focus of high signal within the right thalamus on the diffusion-weighted images with associated low signal on the ADC map. There is also a small linear focus of restricted diffusion within the posterior limb of the right internal capsule. There is an area of infarction involving the left cerebellar hemisphere spanning approximately 1.7 cm. There is a punctate focus of high signal in the high left occipital lobe which may be the site of an additional acute lacunar infarct, but is not well resolved on the ADC map. These areas all demonstrate faint associated T2 prolongation. There is a punctate focus of T2 prolongation in the right cerebellar hemisphere without definitive associated restricted diffusion which may be a subacute or chronic lacunar infarct. Otherwise there are 1-2 punctate foci of T2 prolongation in the centrum semiovale bilaterally, nonspecific. No abnormal susceptibility artifact. By MRI the major arterial and venous flow voids are maintained. Please refer to the prior CTA for vascular details. No extra-axial collections. There is minor regional mass effect in the largest areas of infarction without shift of the normally midline structures. In particular there is mild mass effect on the atrium of the right lateral ventricle. The caliber of the ventricular system as well as the sulci otherwise is normal. The cerebellar tonsils are normally positioned. The sellar and suprasellar regions appear unremarkable. Marrow signal is preserved. No upper cervical adenopathy is visualized. The paranasal sinuses, nasal cavity, nasopharynx, and mastoid air cells are clear. The orbits appear unremarkable. IMPRESSION: Bilateral acute infarctions in the posterior circulation, with the largest areas involving the right posteromedial temporal/occipital lobe and the left cerebellar hemisphere. There is mild regional mass effect without shift of the normally midline structures.
--- NOTE | 2017-07-26 10:43 | PN- Cardiology ---
Subjective Subjective: The patient is awake, alert The events of the last 24 hours as well as telemetry were reviewed. Frequent PVCs including couplets and triplets were noted Review of Systems: The review of systems is negative for chest pains, palpitations nor lightheadedness. The remainder of the 14 point review of systems is noncontributory with the exception of above. Objective Vital Signs and I&Os Vital Signs Date Time Temp Pulse Resp B/P B/P Pulse O2 O2 Flow FiO2 Mean Ox Delivery Rate 07/26 0943 120/66 07/26 0654 97.4 93 12 120/76 98 Nasal 1.0L Cannula 07/25 2305 97.6 109 20 118/72 96 07/25 2157 102 118/74 07/25 1447 98.0 103 18 124/82 96 Room Air Intake & Output 07/26 1600 07/26 0800 07/26 0000 07/25 1600 07/25 0800 07/25 0000 Intake Total 041 014 2351 350 540 Output Total Balance 644 057 4870 350 540 Intake, IV 10 Intake, Oral 823 770 5077 350 540 Physical Exam: General: Nontoxic, no apparent distress. HEENT: Sclera and conjunctiva within normal limits, without xanthelasmas. Neck: Carotids 2+ without bruits. Respiratory: Clear to auscultation, air movement is good, without accessory respiratory muscle use. Heart: Regular rate and rhythm, without murmurs, without JVD. Abdomen: Soft, nontender, no masses, normoactive bowel sounds. Extremities: Without clubbing, cyanosis, without edema. Neuro: Nonfocal exam, strength, 5 out of 5 Skin: Within normal limits without lesions. Psych: Mood and affect: Normal Current Medications: Current Medications Sig/Manoj Start time Last Medication Dose Route Stop Time Status Admin Alprazolam 0.25 MG ONCE ONE 07/26 0745 DC 07/26 PO 07/26 0746 0747 Aspirin 81 MG DAILY 07/23 1000 AC 07/26 PO 0943 Atorvastatin Calcium 80 MG 1700 07/23 1700 AC 07/25 PO 1538 Carvedilol 6.25 MG BID 07/25 2200 AC 07/26 PO 0943 Carvedilol 3.125 MG BID 07/24 1458 DC 07/25 PO 0601 Ferrous Sulfate 325 MG DAILY 07/26 1000 AC 07/26 PO 0944 Heparin Sodium 5,000 UNIT Q8 07/23 0600 AC 07/26 (Porcine) SC 0609 Melatonin 5 MG AT BEDTIME 07/22 2345 AC 07/25 PO 2151 Ondansetron HCl 4 MG Q6P PRN 07/22 2145 AC IV Results Last 48 Hrs of Labs/Mics: Laboratory Tests 07/26/17 0720: Ref Lab Test Result Pending 07/26/17 0720: JESUSITA Titer Pending, Anti-Nuclear Antibody Pending, Ref Lab Test Result Pending 07/26/17 0720: Angiotensin Convert Enz Pending, SS-A/Ro Antibody Pending, SS-B/La Antibody Pending, Double Strand DNA Ab Pending, Ref Lab Test Result Cancelled 07/25/17 1545: Iron 26 L, TIBC 423, Ferritin 34.2, TSH 0.974, Free T4 1.36 Assessment/Plan Assessment/Plan 1. Acute neurologic symptoms with right occipital stroke and possible bilateral cerebellar infarcts 2. Cardiomyopathy of unclear etiology. The estimated LVEF is 10% Cardiomyopathy: Blood work remains pending. The patient will require further workup of her cardiomyopathy including additional laboratory testing (vitamin D, Lyme, etc.) she will as well require workup with likely a cardiac catheterization and cardiac MRI. Given her ectopy and cardiomyopathy, further consideration for a LifeVest application versus AICD was will need to be discussed. Given the need for invasive and cardiac MRI testing, transfer to a facility such as [facility] to be entered into a cardiac transplant/heart failure program would be beneficial. We will attempt to arrange this today. A low-dose BRANDI inhibitor/angiotensin receptor arsh should as well be initiated today. CVA: Reviewed demonstrates possible multiple, bilateral territories. Further workup for hypercoagulability as well as possible cardiac sources of embolism needs to be undertaken. Continue telemetry? Yes
[2017-07-26 12:51] LABS: PTT LA SCREEN 33 sec (< OR = 40)
[2017-07-26] MEDS ORDERED: LISINOPRIL2.5 M1 PO (13:27)
[2017-07-26] MEDS ORDERED: ASPIRIN81 M4 PO (13:27)
[2017-07-26] MEDS ORDERED: CARVEDILOL6.25 M1 PO (13:27)
[2017-07-26] MEDS ORDERED: ATORVASTATIN CA80 M1 PO (13:27)
--- NOTE | 2017-07-26 13:32 | Patient Discharge Instructions ---
Discharge Instructions General Discharge Information You were seen/treated for: Stroke Cardiomyopathy of Unclear etiology Watch for these problems: Please return to the ER in case of numbness/tingling or weakness in any part of the body, slurred speech, facial droop, visual changes, or severe consistent headaches. Special Instructions: Please follow up with your publications production supervisor within a week after discharge. Please follow up with your Neurologist within a week after discharge. Do not drive until the vision is improved and cleared by neurology. Do not ever take oral contraceptive pills in the future. Diet Continue normal diet: Yes Recommended Diet: Heart Healthy Activity Full Activity/No Limits: Yes Activity Self Limited: Yes (As Tolerated) Acute Coronary Syndrome Inclusion Criteria At DC or during hospital stay patient has or had the following: ACS DIAGNOSIS No Discharge Core Measures Meds if any: Prescribed or Continued at Discharge Meds if any: NOT Prescribed or Continued at Discharge Congestive Heart Failure Inclusion Criteria At DC or during hospital stay patient has or had the following: CHF DIAGNOSIS No Discharge Core Measures Meds if any: Prescribed or Continued at Discharge Meds if any: NOT Prescribed or Continued at Discharge Cerebrovascular accident Inclusion Criteria At DC or during hospital stay patient has or had the following: CVA/TIA Diagnosis Yes Discharge Core Measures Meds if any: Prescribed or Continued at Discharge Antithrombotic Yes Statin (required if LDL =>70) Yes Anticoagulant No Meds if any: NOT Prescribed or Continued at Discharge Venous thromboembolism Inclusion Criteria VTE Diagnosis No VTE Type NONE VTE Confirmed by (Test) NONE Discharge Core Measures - Per Current guidelines, there needs to be overlap - treatment for the first 5 days of Warfarin therapy. - If discharged on Warfarin prior to 5 days of - overlap therapy, the patient will need to be - assessed for post discharge needs including - *Post discharge parental anticoagulation - *Warfarin and/or parental anticoagulation education - *Follow up date to check INR post discharge At least 5 days overlap therapy as Inpatient No Meds if any: Prescribed or Continued at Discharge Note: Overlap Therapy is Warfarin and Anticoagulant Meds if any: NOT Prescribed or Continued at Discharge
--- NOTE | 2017-07-26 13:45 | Discharge Summary ---
Visit Information Visit Dates Admission Date: 07/22/17 Discharge Date: 07/26/17 Hospital Course Course Attending Physician: Libby Kimble MD Primary Care Physician: Ford Mcdowell MD Consulting Request: 1 Consulting Specialty: Neurology Consulting Physician: Dr. Mcclure Reason for Consult: CVA with visual field defect Consulting Request: 2 Consulting Specialty: Cardiology Consulting Physician: Dr. Nicolas Haines, Dr. Gallito Song Reason for Consult: Cardiomyopathy of unclear etiology Hospital Course: The patient is a 37-year-old woman with no significant past medical history. The patient presented to the [facility] emergency room with complaints of numbness and weakness of her left side. She was apparently in her usual state of health until a day prior to presentation when she developed nausea, vomiting and abdominal pain in the context of her other family members having symptoms of a GI virus over the last few weeks. She was scheduled to see her primary care physician, however, on the way to the visit she developed worsening numbness and tingling on the left side of her face , arm and leg, along with decreased vision on the left side and was brought to the emergency room. Patient denied seizure-like activity or loss of consciousness. She was able to walk up to the emergency room at [facility] without an unsteady gait. She denies similar symptoms in the past. She is also on oral contraceptive pills for the past 2 years. Vital signs on admission showed a temperature 97.7 F, pulse rate 117bpm, respiratory rate 18/min, blood pressure 136/93 mmhg, 96% at room air. Physical exam on admission revealed a young man was alert, oriented 3 and in no acute distress sitting comfortably in bed. HEENT revealed PERRLA, moist mucous membranes. Examination of the neck did not reveal elevated JVD, or a carotid bruit. Cardiovascular exam pertinent for normal S1, S2, regular pulse, no murmurs rubs or gallops appreciated. Chest was clear to auscultation bilaterally. Abdominal exam was benign with abdomen soft, nontender, nondistended with normal bowel sounds. Neurological exam showed left-sided temporal hemianopsia, EOMI intact, cranial nerves III- IX grossly intact, no sensory or motor deficits identified iwth normal tone, and strength 5/5 in all 4 extermities. Significant admission labs: WBC 12, hemoglobin 12, platelet count 243, sodium 138, potassium 5, BUN 13, creatinine 0.9, cholesterol 117, LDL 56, HDL 41, beta- hCG negative By the time she arrived in the ER, her tingling and numbness had subsided. She continued to experience improvement in her left visual field with some residual blurring of vision on the left. Patient was reviewed by neurologist, Dr. Guardado and it was determined that with her low NIH stroke scale of 2, due to risk of TPA outweighed the benefits. However, he agreed with performing a CTA of head and neck. A CTA of head and neck was performed which showed right occipital lobe infarct and occlusion of the right SURGICAL AIDE at the distal P3 segment. call center associate Neurologist Dr. Esposito opined that the SURGICAL AIDE occlusion was not amenable to thrombectomy. Patient was admitted for treatment of her stroke and given aspirin 81 mg daily and high-dose atorvastatin 80 mg daily. The patient's carotid ultrasound was normal. However, her echocardiogram was noted to be significantly abnormal. With severely dilated left ventricle and severe global hypokinesis with sparing of the posterior wall and ejection fraction of 20%. She was reviewed by corporate counsel and started on carvedilol 6.25 mg twice a day and low-dose lisinopril 2.5 mg daily. The patient had frequent PVCs including couplets and triplets while on admission. The cause of her cardiomyopathy remained unclear and possible etiologies including ischemia, infiltrative disease, previously unidentified cardiomyopathy, post viral cardiomyopathy were considered. She had an MRI brain on admission without contrast that showed bilateral acute infarctions in the posterior circulation, with the largest areas involving the right posteromedial temporal/occipital lobe and the left cerebellar hemisphere. There was mild regional mass effect without midline shift. The patient had hypercoagulable workup. She had negative anti-Cardiolite pain antibodies IgG, A and M, and negative lupus anticoagulant. Blood work for anti- nuclear antibody, zzmo-mxmdua-royqedoo DNA antibody, anti-SS-A/Rho and SSB/La antibody, MTHFR gene mutation, Charity 1 antibody, homocysteine, CRP, ESR and angiotensin converting enzyme level were all pending at the time of writing. She was reviewed by corporate counsel Dr. Song and it was decided that she would need further investigations to ascertain because of her cardiomyopathy including cardiac MRI and cardiac catheterization which are not available at [facility]. Therefore she was transferred to [facility] for further cardiac evaluation including a cardiac MRI and cardiac catheterization. Please note patient is to stop control pills permanently and not to drive until cleared by neurologist with formal visual field testing. She should also have a transesophageal echo and 30-day event monitor done after discharge and follow-up with both her corporate counsel and neurologist. Allergies: Coded Allergies: No Known Allergies (07/22/17) Disposition Summary Disposition Principal Diagnosis: 1. Right occipital lobe CVA 2. Right posterior cerebral artery occlusion 3. Cardiomyopathy with reduced ejection fraction 15-20% of unclear etiology 4. Left visual field defect Additional Diagnosis: 4. Anxiety Discharge Disposition: other general hospital Discharge Instructions General Discharge Information Code Status: Full Code Patient's Diet: Heart healthy diet Patient's Activity: Self-limited activity Follow-Up Instructions/Appts: 1. Please follow up with your corporate counsel and primary care provider within a week after discharge. 2. Please follow up with your Neurologist within a week after discharge. 3. Do not drive until the vision is improved and cleared by neurology. 4. Do not ever take oral contraceptive pills in the future Medications at Discharge Discharge Medications: Stop taking the following medications: Norgestimate-Ethinyl Estradiol (Ortho Tri-Cyclen Lo Tablet) [id number] LO TABLET ORAL DAILY Qty = 84 Start taking the following new medications: Atorvastatin Calcium (Atorvastatin Calcium) 80 MG TABLET 1 Tablet ORAL DAILY Qty = 30 No Refills Comments: Last Taken:07/25/17 Time:1700 Carvedilol (Carvedilol) 6.25 MG TABLET 1 Tablet ORAL TWICE DAILY Qty = 60 No Refills Comments: Last Taken:07/26/17 Time:1000 Lisinopril (Lisinopril) 2.5 MG TABLET 1 Tablet ORAL DAILY Qty = 30 No Refills Comments: Last Taken:07/26/17 Time:1425 Aspirin (Aspirin*) 81 MG TAB.CHEW 1 Tablet ORAL DAILY Qty = 30 No Refills Comments: Last Taken:07/26/17 Time:1000 Ferrous Sulfate (Ferrous Sulfate) 325 MG (65 MG IRON) TABLET. 325 Milligram ORAL TWICE DAILY Qty = 60 No Refills Copies To: Kami LOCKETT,Bon Ramos; Rafaela LOCKETT,Max; Jeremias LOCKETT,Ford Jaimes; Bertram LOCKETT,Gallito
[2017-07-26 14:30] VITALS: BP 134/78
[2017-07-26] MEDS ORDERED: FERROUS SULFAT325 M2 PO (15:57)
== END 2017-07-26 17:20 | disposition short-term general hospital (02) | DRG 65 ==
LOC: ERH 15:35 → ERHI 19:59 → 1NO 19:59 → ENRESERV 20:46 → ENTRNSPT 22:24 → EDTRNSPTSTS 22:31 → EDTRNSPT 22:31 → 1NO 22:44 → CMPTRNSPT 22:53 → 1NO 07-23 09:01
PROVIDERS: Internal Medicine; Internal Medicine Infectious Disease; Student in an Organized Health Care Education/Training Program
DX: I63.531 Cerebral infarction due to unspecified occlusion or stenosis of right posterior cerebral artery (principal); I42.9 Cardiomyopathy, unspecified; H53.47 Heteronymous bilateral field defects; R20.2 Paresthesia of skin; K52.9 Noninfective gastroenteritis and colitis, unspecified; I10 Essential (primary) hypertension; Z79.3 Long term (current) use of hormonal contraceptives; F41.9 Anxiety disorder, unspecified
CPT/HCPCS: 1NP; 70551; 85613; 85730; 36415; 36592; 71046; 82436; 93005; 93010; 97166-GO; C8929; J1644; J2405; J3490; Q2036; Q9957